=== PATIENT | male | born 1995 | race African-American/Black ===

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

== ENCOUNTER 2017-05-11 23:07 | Emergency (ER) | payer MEDICAID ==
[~2017-05-11] VITALS: Ht 180.3 cm; Wt 70.0 kg
[2017-05-11 23:08] VITALS: BP 123/57; PULSE 55; RESP 16; TEMP 98.7; O2SAT 94
--- NOTE | 2017-05-11 23:59 | PD ---
HPI Chief Complaint: Foreign Body Time Seen by Provider: 23:56 Travel History International Travel<30 days: No Contact w/Intl Traveler<30days: No Traveled to known affect area: No History of Present Illness HPI Patient is a 22-year-old male presenting to emergency room evaluation of a foreign object in his left thumb. Patient was fishing this evening when the fish hook became lodged. The incident occurred just prior to arrival. Patient states it's sore and his pain is a 7 out of 10. He is uncertain when his last tetanus vaccine was administered. He denies any other injuries at this time. PFSH Past Medical History Hx Anticoagulant Therapy: No ADD: Yes Asthma: Yes Blood Disorders: No Cardiovascular Problems: No Chemotherapy: No Cerebrovascular Accident: No Diabetes: No Diminished Hearing: No Respiratory: No Immunizations Current: Yes Past Surgical History Other Surgery: Yes (L FOOT DUE TO LARGE LAC.) Social History Alcohol Use: Yes (RARE) Tobacco Use: Yes (1/2 PPD) Substance Use: No Allergies-Medications (Allergen,Severity, Reaction): Coded Allergies: No Known Allergies (Unverified , 05/11/17) Reported Meds & Prescriptions Reported Meds & Active Scripts Active No Active Prescriptions or Reported Medications Review of Systems Except as stated in HPI: all other systems reviewed are Neg Skin: Positive Other Physical Exam Narrative GENERAL: Well-developed, well-nourished, alert male. Resting comfortably in no acute distress. SKIN: Warm and dry. [place] lodged in the palmar aspect of the right thumb distal to the DIP joint HEAD: Normocephalic. EYES: No scleral icterus. No injection or drainage. NECK: Supple, trachea midline. No JVD or lymphadenopathy. CARDIOVASCULAR: Regular rate and rhythm without murmurs, gallops, or rubs. RESPIRATORY: Breath sounds equal bilaterally. No accessory muscle use. GASTROINTESTINAL: Abdomen soft, non-tender, nondistended. MUSCULOSKELETAL: No cyanosis, or edema. BACK: Nontender without obvious deformity. No CVA tenderness. Data Data Last Documented VS Vital Signs Date Time Temp Pulse Resp B/P (MAP) Pulse Ox O2 Delivery O2 Flow Rate FiO2 05/11/17 23:08 98.7 55 16 123/57 (79) 94 Room Air Orders Orders Cephalexin (Keflex) (05/12/17 00:00) Tetanus/Diphtheria Tox Adult (Tetanus/Di (05/12/17 00:00) MDM Medical Decision Making Medical Screen Exam Complete: Yes Emergency Medical Condition: Yes Interpretation(s) Vital Signs Date Time Temp Pulse Resp B/P (MAP) Pulse Ox O2 Delivery O2 Flow Rate FiO2 05/11/17 23:08 98.7 55 16 123/57 (79) 94 Room Air Differential Diagnosis Cellulitis versus retained foreign body versus other Narrative Course Patient presented to emergency department with a fishhook lodged in his right thumb pad. Please see procedure report for IND. Patient tolerated procedure well. Finger pad was soaked in Betadine solution. Patient was given a dose of Keflex in the emergency department and his tetanus vaccine was updated today. Patient was encouraged to complete full course of antibiotics. He was advised to return to emergency department for any new or worsening symptoms. He was encouraged to take ibuprofen as needed and as directed for pain. He verbalized understanding of these instructions. Patient is stable for discharge. Procedures Procedure Narrative After the risks and benefits were discussed the following procedure was performed: The area was prepped and was sterilely draped. A subcutaneous wheal of 1 % Xylocaine with a total number 1 mL was used to anesthetize the area. The area was properly anesthetized. A number 11 scalpel was used to make a 0.5 -cm incision adjacent to the retained fishhook. [place] was removed without difficulty. Patient tolerated procedure well. Diagnosis Primary Impression: Retained foreign body Additional Impression: Tetanus toxoid vaccination administered at current visit Referrals: Primary Care Physician 1 week Patient Instructions: General Instructions, Soft Tissue Foreign Body (GEN) Additional Instructions: Complete full course of antibiotics as prescribed Keep area clean and dry, wash with soap and water and cover with Band-Aid until with antibiotic ointment Follow-up with a primary doctor Return to emergency department for any new or worsening symptoms Med/Other Pt SpecificInfo: Prescription(s) given Scripts Cephalexin (Keflex) 500 Mg Cap 500 MG PO Q12H for Infection for 10 Days, #20 CAP 0 Refills Prov: Aliyah Koch 05/12/17 Ibuprofen (Ibuprofen) 800 Mg Tab 800 MG PO Q6HR Y for PAIN, #40 TAB 0 Refills Prov: Aliyah Koch 05/12/17 Disposition: 01 DISCHARGE HOME Condition: Stable Aliyah Koch May 11, 2017 23:59
[2017-05-12] MEDS ORDERED: CEPHALEXIN MONOHYDRATE 500 MG CAP PO ONE
[2017-05-12] MEDS ORDERED: TETANUS/DIPHTHERIA TOXOID ADULT 0.5 ML VIAL IM ONE
[2017-05-12] MEDS ORDERED: CEPH-460 PO (00:05)
[2017-05-12] MEDS ORDERED: IBUP800T23 PO (00:05)
== END 2017-05-12 00:45 | disposition home or self-care (01) ==
LOC: NEPK 23:07
DX: S61.042A Puncture wound with foreign body of left thumb without damage to nail, initial encounter (principal); W45.8XXA Other foreign body or object entering through skin, initial encounter; Y92.89 Other specified places as the place of occurrence of the external cause; Z23 Encounter for immunization; J45.909 Unspecified asthma, uncomplicated; Z72.0 Tobacco use
CPT/HCPCS: 90471; 90714

== ENCOUNTER 2017-11-13 10:58 | Emergency (ER) | payer SELFPAY ==
[~2017-11-13] VITALS: Ht 175.3 cm; Wt 68.0 kg
[~2017-11-13 10:58] MED LIST: CEPH-460 PO; IBUP1TAB7 PO
[2017-11-13 11:00] VITALS: BP 125/58; PULSE 72; RESP 18; TEMP 98.3; O2SAT 99
[2017-11-13 11:28] LABS: BILIRUBIN, URINE NEG (NEG); BLOOD, URINE NEG (NEG); GLUCOSE,URINE NEG (NEG); KETONE, URINE NEG (NEG); MUCUS URINE MOD /lpf (OCC); NITRITE,URINE NEG (NEG); URINE COLOR YELLOW (YELLW/STRAW); URINE LEUKOCYTE ESTERASE MOD (NEG)
[2017-11-13] MEDS ORDERED: AZITHROMYCIN PWD FOR SUSP 1 GM PACKET PO ONE (12:00)
[2017-11-13] MEDS ORDERED: LIDOCAINE HCL 1% 50 ML VIAL IM ONE (12:00)
[2017-11-13] MEDS ORDERED: metroNIDAZOLE 500 MG TAB PO ONE (12:00)
[2017-11-13] MEDS ORDERED: cefTRIAXone 250 MG VIAL IM ONE (12:00)
[2017-11-13] MEDS ORDERED: ONDANSETRON ODT 4 MG TAB PO ONE (12:00)
--- NOTE | 2017-11-13 12:02 | PD ---
HPI Chief Complaint: Complaint Time Seen by Provider: 11:47 Travel History International Travel<30 days: No Contact w/Intl Traveler<30days: No Traveled to known affect area: No History of Present Illness HPI Is a 22-year-old male presents to the emergency department complaining of penile discharge and dysuria. He feels like he has an STD. He sexually active 3 female partners in the past 6 months. History of STD about 4 months ago. States his partners were tested and treated as well. Denies any testicular pain. History Past Medical History Medical History: Denies Significant Hx Social History Alcohol Use: Yes (RARE) Tobacco Use: Yes (socially) Allergies-Medications (Allergen,Severity, Reaction): Coded Allergies: No Known Allergies (Unverified Adverse Reaction, Unknown, 11/13/17) Reported Meds & Prescriptions Reported Meds & Active Scripts Active Review of Systems Except as stated in HPI: all other systems reviewed are Neg Physical Exam Narrative GENERAL: 22-year-old man, no acute distress. SKIN: Warm and dry. CARDIOVASCULAR: Warm and well perfused. RESPIRATORY: Normal rate and effort. : Normal external male genitalia. No visible discharge. No testicular tenderness or swelling. NEUROLOGICAL: Awake and alert. No gross deficits. Data Data Last Documented VS Vital Signs Date Time Temp Pulse Resp B/P (MAP) Pulse Ox O2 Delivery O2 Flow Rate FiO2 11/13/17 11:00 98.3 72 18 125/58 (80) 99 Orders Orders Urinalysis - C+S If Indicated (11/13/17 11:02) Gc And Chlamydia Pcr (11/13/17 11:04) Urine Culture (11/13/17 11:05) Azithromycin Powd Pack (Zithromax Powd P (11/13/17 12:00) Ceftriaxone Inj (Rocephin Inj) (11/13/17 12:00) Lidocaine 1% Inj (50 Ml) (Xylocaine 1% I (11/13/17 12:00) Metronidazole (Flagyl) (11/13/17 12:00) Ondansetron Odt (Zofran Odt) (11/13/17 12:00) Labs Laboratory Tests Test 11/13/17 11:05 Urine Color YELLOW Urine Turbidity CLEAR Urine pH 7.0 Urine Specific [place] 1.019 Urine Protein NEG mg/dL Urine Glucose (UA) NEG mg/dL Urine Ketones NEG mg/dL Urine Occult Blood NEG Urine Nitrite NEG Urine Bilirubin NEG Urine Urobilinogen LESS THAN 2.0 MG/DL Urine Leukocyte Esterase MOD Urine RBC 1 /hpf Urine WBC 53 /hpf Urine Mucus MOD /lpf Microscopic Urinalysis Comment CULTURE INDICATED MDM Medical Decision Making Medical Screen Exam Complete: Yes Emergency Medical Condition: Yes Differential Diagnosis Dysuria, urethritis, other Narrative Course While 22-year-old with urethritis. Looks well. Labs sent. Will treat. Diagnosis Primary Impression: Urethritis Additional Instructions: Followup with your g primary doctor for routine care and followup testing for other sexually transmitted infection such as HIV, hepatitis, syphilis. Any sexual partners you have should be tested and treated as well. You should not have sex until you have no symptoms, and your partners tested and treated as well. Med/Other Pt SpecificInfo: No Change to Meds Disposition: 01 DISCHARGE HOME Condition: Dale Hernandez MD Nov 13, 2017 12:02
[2017-11-13] MEDS ORDERED: AZITHROMYCIN 250 MG TAB PO ONE (12:15)
== END 2017-11-13 13:00 | disposition home or self-care (01) ==
LOC: NEPD 10:58
DX: N34.2 Other urethritis (principal); A54.09 Other gonococcal infection of lower genitourinary tract; Z72.0 Tobacco use
CPT/HCPCS: 81001; 87086; 87491; 87591; 96372; 99283; J0696

== ENCOUNTER 2017-11-23 04:09 | Emergency (ER) | payer SELFPAY ==
[2017-11-23 04:13] VITALS: BP 143/80; PULSE 102; RESP 15; TEMP 98.1; O2SAT 98
[2017-11-23] MEDS ORDERED: SODIUM CHLORIDE 0.9% FLUSH 10 ML FLUSH IVF PRN (04:30)
[2017-11-23] MEDS ORDERED: AZITHROMYCIN 250 MG TAB PO ONE (04:45)
[2017-11-23] MEDS ORDERED: cefTRIAXone 250 MG VIAL IM ONE (04:45)
--- NOTE | 2017-11-23 04:45 | PD ---
HPI Chief Complaint: Complaint Time Seen by Provider: 04:16 Travel History International Travel<30 days: No Contact w/Intl Traveler<30days: No Traveled to known affect area: No History of Present Illness HPI Patient is a 22-year-old male presenting to the emergency department for evaluation of dysuria or penile discharge. Patient states her symptoms started 2 days ago. He reports that he had unprotected sex recently. He denies any abdominal pain, fevers, chills, nausea, vomiting. Symptoms are moderate in nature. He reports his pain is 4 out of 10 when he urinates. Symptom onset was gradual. No alleviating factors. Patient denies any testicular pain. PFSH Past Medical History Hx Anticoagulant Therapy: No ADD: Yes Asthma: Yes Immunizations Current: Yes Past Surgical History Other Surgery: Yes (L FOOT DUE TO LARGE LAC.) Social History Alcohol Use: Yes (RARE) Tobacco Use: Yes (socially) Substance Use: No Allergies-Medications (Allergen,Severity, Reaction): Coded Allergies: No Known Allergies (Unverified Adverse Reaction, Unknown, 11/23/17) Reported Meds & Prescriptions Reported Meds & Active Scripts Active No Active Prescriptions or Reported Medications Review of Systems Except as stated in HPI: all other systems reviewed are Neg Genitourinary: Positive: Dysuria, Discharge Physical Exam Narrative GENERAL: Well-developed, well-nourished, alert -[place] male. Presenting in no acute distress. SKIN: Warm and dry. HEAD: Normocephalic. EYES: No scleral icterus. No injection or drainage. NECK: Supple, trachea midline. No JVD or lymphadenopathy. CARDIOVASCULAR: Regular rate and rhythm without murmurs, gallops, or rubs. RESPIRATORY: Breath sounds equal bilaterally. No accessory muscle use. GASTROINTESTINAL: Abdomen soft, non-tender, nondistended. MUSCULOSKELETAL: No cyanosis, or edema. BACK: Nontender without obvious deformity. No CVA tenderness. Data Data Last Documented VS Vital Signs Date Time Temp Pulse Resp B/P (MAP) Pulse Ox O2 Delivery O2 Flow Rate FiO2 11/23/17 04:13 98.1 102 15 143/80 (101) 98 Orders Orders Urinalysis - C+S If Indicated (11/23/17 04:24) Gc And Chlamydia Pcr (11/23/17 04:24) Sodium Chloride 0.9% Flush (Ns Flush) (11/23/17 04:30) Ceftriaxone Inj (Rocephin Inj) (11/23/17 04:45) Azithromycin (Zithromax) (11/23/17 04:45) Labs Laboratory Tests Test 11/23/17 04:30 Urine Color LIGHT-YELLOW Urine Turbidity CLEAR Urine pH 6.5 Urine Specific [place] 1.014 Urine Protein NEG mg/dL Urine Glucose (UA) NEG mg/dL Urine Ketones NEG mg/dL Urine Occult Blood NEG Urine Nitrite NEG Urine Bilirubin NEG Urine Urobilinogen 2.0 MG/DL Urine Leukocyte Esterase NEG Urine RBC LESS THAN 1 /hpf Urine WBC LESS THAN 1 /hpf Urine Mucus FEW /lpf Microscopic Urinalysis Comment CULT NOT INDICATED MDM Medical Decision Making Medical Screen Exam Complete: Yes Emergency Medical Condition: Yes Medical Record Reviewed: Yes Interpretation(s) Laboratory Tests Test 11/23/17 04:30 Urine Color LIGHT-YELLOW Urine Turbidity CLEAR Urine pH 6.5 Urine Specific [place] 1.014 Urine Protein NEG mg/dL Urine Glucose (UA) NEG mg/dL Urine Ketones NEG mg/dL Urine Occult Blood NEG Urine Nitrite NEG Urine Bilirubin NEG Urine Urobilinogen 2.0 MG/DL Urine Leukocyte Esterase NEG Urine RBC LESS THAN 1 /hpf Urine WBC LESS THAN 1 /hpf Urine Mucus FEW /lpf Microscopic Urinalysis Comment CULT NOT INDICATED Vital Signs Date Time Temp Pulse Resp B/P (MAP) Pulse Ox O2 Delivery O2 Flow Rate FiO2 11/23/17 04:13 98.1 102 15 143/80 (101) 98 Differential Diagnosis Chlamydia versus gonorrhea versus urethritis versus UTI versus epididymitis versus other Narrative Course Patient is a well-appearing 22-year-old male presenting for evaluation of urinary symptoms and penile discharge. Patient was seen 9 days ago with the same/similar complaint. He was treated empirically for chlamydia and gonorrhea. Patient did test positive for gonorrhea. He did not abstain from sexual intercourse nor did he use consistent barrier protection. Patient will be treated again empirically. He was strongly advised to avoid any sexual activity for at least 1 week after treatment. He was advised that if he does test positive he will be notified and sexual partners need to be tested and treated as well. He verbalized understanding of these instructions. He was advised to follow-up with the [facility] department for further STD screening. Patient was advised that testing positive for STDs puts him at risk for cari others. He was strongly encouraged once again to use barrier protection. Urinalysis is unremarkable. GC and Chlamydia are pending. Diagnosis Primary Impression: Penile discharge Additional Impression: Dysuria Referrals: [facility] Dept. 2 days Patient Instructions: Condom Use (DC), General Instructions, Safe Sex (ED), Sexually Transmitted Diseases (DC) Additional Instructions: Follow-up at the [facility] department Use condoms every time to avoid cari a sexually transmitted disease Abstain from sexual intercourse for at least 1 week after treatment You will be notified of your test results, if positive your partner should be notified so they can be tested and/or treated. Return to emergency department for any new or worsening symptoms Med/Other Pt SpecificInfo: No Change to Meds Scripts No Active Prescriptions or Reported Meds Disposition: 01 DISCHARGE HOME Condition: Stable Aliyah Koch Nov 23, 2017 04:45
[2017-11-23 04:54] LABS: BILIRUBIN, URINE NEG (NEG); BLOOD, URINE NEG (NEG); GLUCOSE,URINE NEG (NEG); KETONE, URINE NEG (NEG); MUCUS URINE FEW /lpf (OCC); NITRITE,URINE NEG (NEG); PH, URINE 6.5 (5.0-8.5); URINE COLOR LIGHT-YELLOW (YELLW/STRAW); URINE LEUKOCYTE ESTERASE NEG (NEG)
== END 2017-11-23 05:33 | disposition home or self-care (01) ==
LOC: NEPD 04:09
DX: R36.9 Urethral discharge, unspecified (principal); R30.0 Dysuria; J45.909 Unspecified asthma, uncomplicated; Z72.0 Tobacco use
CPT/HCPCS: 81001; 87491; 87591; 96372; 99283; J0696

== ENCOUNTER 2017-12-23 10:08 | Emergency (ER) | payer SELFPAY ==
[~2017-12-23] VITALS: Ht 180.3 cm; Wt 68.0 kg
[2017-12-23 10:26] VITALS: BP 125/53; PULSE 55; RESP 16; TEMP 98.4; O2SAT 100
--- NOTE | 2017-12-23 10:40 | PD ---
HPI Chief Complaint: Complaint Time Seen by Provider: 10:29 Travel History International Travel<30 days: No Contact w/Intl Traveler<30days: No Traveled to known affect area: No History of Present Illness HPI 22-year-old male presents to the emergency department stating "I have gonorrhea ". He states he has had in the past with similar symptoms. Patient reports penile discharge for 2 days. No headaches, fevers, chills. No abdominal pain. Nausea, vomiting, diarrhea. No testicular pain and swelling. He denies any other complaints other than penile discharge. He has no chronic medical problems and takes no prescribed medications. Mild severity. PFSH Past Medical History Hx Anticoagulant Therapy: No ADD: Yes Asthma: Yes Immunizations Current: Yes Past Surgical History Other Surgery: Yes (L FOOT DUE TO LARGE LAC.) Social History Alcohol Use: Yes (RARE) Tobacco Use: Yes (socially) Substance Use: No Allergies-Medications (Allergen,Severity, Reaction): Coded Allergies: No Known Allergies (Unverified Adverse Reaction, Unknown, 12/23/17) Reported Meds & Prescriptions Reported Meds & Active Scripts Active No Active Prescriptions or Reported Medications Review of Systems Except as stated in HPI: all other systems reviewed are Neg Physical Exam Narrative GENERAL: Well-nourished, well-developed male patient, ambulatory. Afebrile. SKIN: Focused skin assessment warm/dry. HEAD: Normocephalic. Atraumatic EYES: No scleral icterus. No injection or drainage. NECK: Supple, trachea midline. No JVD or lymphadenopathy. CARDIOVASCULAR: Regular rate and rhythm without murmurs, gallops, or rubs. RESPIRATORY: Breath sounds equal bilaterally. No accessory muscle use. Lung sounds are clear to auscultation peer GASTROINTESTINAL: Abdomen soft, non-tender, nondistended. MUSCULOSKELETAL: No cyanosis, or edema. GENITOURINARY: Circumcised. Testes descended bilaterally without evidence of rotation. No lesions or erythema. Positive urethral discharge. This exam was done with RN at bedside Data Data Last Documented VS Vital Signs Date Time Temp Pulse Resp B/P (MAP) Pulse Ox O2 Delivery O2 Flow Rate FiO2 12/23/17 10:26 98.4 55 16 125/53 (77) 100 Orders Orders Gc And Chlamydia Pcr (12/23/17 10:34) Azithromycin (Zithromax) (12/23/17 10:45) Ceftriaxone Inj (Rocephin Inj) (12/23/17 10:45) Lidocaine 1% Inj (50 Ml) (Xylocaine 1% I (12/23/17 10:45) MDM Medical Decision Making Medical Screen Exam Complete: Yes Emergency Medical Condition: Yes Medical Record Reviewed: Yes Differential Diagnosis Urethritis versus possible STD versus UTI Narrative Course 22-year-old male presents to the emergency department for evaluation of penile discharge, possible STD. Patient denies any other symptoms or complaints. Urine is obtained. Patient will be prophylactically treated for chlamydia/ gonorrhea. He is instructed to have a sexual partner tested and treated before resuming sex. He is also instructed to use protection. He verbalizes agreement. He is to follow the health department for further STD workup. The patient was discharged in stable condition with instructions, including return instructions and follow up instructions. Diagnosis Primary Impression: Urethritis Additional Impression: Penile discharge, without blood Referrals: Primary Care Physician call for appointment Patient Instructions: General Instructions, Sexually Transmitted Diseases (ED) Additional Instructions: Follow-up in the health department or with your primary care physician for further STD workup. Have sexual partner tested and treated before resuming sex. Use protection. Return to the emergency department for any acute worsening of symptoms. Med/Other Pt SpecificInfo: No Change to Meds Scripts No Active Prescriptions or Reported Meds Disposition: 01 DISCHARGE HOME Condition: Stable Nydia Salcedo December 23, 2017 10:40
[2017-12-23] MEDS ORDERED: LIDOCAINE HCL 1% 50 ML VIAL XX ONE (10:45)
[2017-12-23] MEDS ORDERED: AZITHROMYCIN 250 MG TAB PO ONE (10:45)
[2017-12-23] MEDS ORDERED: cefTRIAXone 250 MG VIAL IM ONE (10:45)
== END 2017-12-23 11:26 | disposition home or self-care (01) ==
LOC: NEPK 10:08
DX: N34.2 Other urethritis (principal); Z72.0 Tobacco use
CPT/HCPCS: 87491; 87591; 96372; 99283; J0696